=== PATIENT | female | born 1970 | race Caucasian/White ===

== ENCOUNTER 2016-06-11 08:20 | Emergency (ER) | payer MEDICAID ==
[~2016-06-11] VITALS: Ht 165.1 cm; Wt 68.2 kg
[~2016-06-11 08:20] MED LIST: ACET500C5 PO; IBUP400T22 PO; NPH10OT RIGHT EAR
[2016-06-11 08:45] VITALS: Ht 165.1 cm; Wt 68.2 kg
[2016-06-11 09:16] LABS: URINE BLOOD (Dip) POC 2+ (NEGATIVE)
[2016-06-11] MEDS ORDERED: CEFTRIAXONE 1 GM INJ IM ONE (09:30)
[2016-06-11] MEDS ORDERED: CIPR500T4 PO (09:50)
[2016-06-11] MEDS ORDERED: PHEN-538 PO (09:50)
[2016-06-11] MEDS ORDERED: LIDOCAINE 1% (MDV) 20 ML INJ IM ONE (10:00)
--- NOTE | 2016-06-11 10:32 | ERD ---
ER Documentation Chief Complaint Date/Time DATE: 06/11/16 TIME: 10:26 Chief Complaint CAME IN VIA INTAKE DUE TO BURNING WITH URINATION HPI 45-year-old female complaining of burning upon urination and urinary frequency 4 days. Patient reports suprapubic pain and flank pain, as well as subjective fever. She did not take any medications for pain or fever. Patient reports history of diabetes, taking medications for diabetes. She checks blood sugar daily, her fasting blood sugar this morning was 107. Denies nausea or vomiting. ROS All systems reviewed and are negative except as per history of present illness. Medications Home Meds Active Scripts Phenazopyridine Hcl* (Pyridium*) 200 Mg Tab, 200 MG PO TID Y for URINARY PAIN, # 6 TAB Prov:TYLER HICKS NP 06/11/16 Ciprofloxacin Hcl* (Ciprofloxacin Hcl*) 500 Mg Tablet, 500 MG PO BID for 10 Days , TAB Prov:TYLER HICKS NP 06/11/16 Acetaminophen* (Tylophen*) 500 Mg Capsule, 1 CAP PO Q6H Y for PAIN AND OR ELEVATED TEMP, #30 CAP Prov:CLARKE BETH PA-C 03/03/15 Ibuprofen* (Motrin*) 400 Mg Tab, 400 MG PO Q6H Y for PAIN AND OR ELEVATED TEMP, #30 TAB Prov:CLARKE BETH PA-C 03/03/15 Neomycin/Polymyxin/Hydrocort* (Cortisporin* Otic) 10 Ml Susp, 4 DROP RIGHT EAR QID for 10 Days, EA Prov:CLARKE BETH PA-C 03/03/15 Allergies Allergies: Coded Allergies: No Known Allergy (Unverified , 03/03/15) PMhx/Soc Medical and Surgical Hx: pt denies Medical Hx, pt denies Surgical Hx History of Surgery: No Anesthesia Reaction: No Hx Neurological Disorder: No Hx Respiratory Disorders: No Hx Cardiac Disorders: No Hx Psychiatric Problems: No Hx Miscellaneous Medical Probl: Yes (dm) Hx Alcohol Use: No Hx Substance Use: No Hx Tobacco Use: No Physical Exam Vitals Vital Signs Date Time Temp Pulse Resp B/P Pulse Ox O2 Delivery O2 Flow Rate FiO2 06/11/16 08:45 98.5 70 18 132/68 98 Physical Exam General impression: Well-developed, well-nourished. Alert, oriented, in no acute distress Head: Normocephalic, atraumatic. Respiration: Normal respiratory effort. Lungs clear to auscultate bilaterally. No wheezes, rales or rhonchi. Cardiovascular: Regular rate and rhythm. No murmurs or extra heart sounds. Abdomen: Abdomen normal to inspection. Suprapubic tenderness, no other tenderness. No masses or organomegaly. Bowel sounds normal. Back: Normal to inspection. No midline spine tenderness. Left CVA tenderness. Neuro: Mental status normal, speech normal. SLASHER HAND grossly intact. Skin: Normal turgor. No rash or lesions. Psych: Normal mood and affect. Results 24 hrs Laboratory Tests Test 06/11/16 09:15 Bedside Urine pH (LAB) 6.0 Bedside Urine Protein (LAB) 2+ Bedside Urine Glucose (UA) 0.25% Bedside Urine Ketones (LAB) Negative Bedside Urine Blood 2+ Bedside Urine Nitrite (LAB) Negative Bedside Urine Leukocyte Esterase (L 1+ Current Medications Medications (Trade) Dose Ordered Sig/Deepali Route PRN Reason Start Time Stop Time Status Last Admin Dose Admin Ceftriaxone Sodium (Rocephin) 1 gm ONCE ONCE IM 06/11/16 09:30 06/11/16 09:31 DC 06/11/16 09:42 Lidocaine (Xylocaine 1% (Mdv) 20 ml) 1 ml ONCE ONCE IM 06/11/16 10:00 06/11/16 10:01 DC 06/11/16 09:43 Procedures/MDM Well-appearing 45-year-old female with history of diabetes presented ED with urinary frequency and dysuria 4 days. Her urine dip showed 1+ leukocyte, negative nitrite, 2+ blood, 0.25% glucose, and 2+ protein. Patient has urinary tract infection. Patient also has left CVA tenderness as subjective fever, I suspect pyelonephritis. Rocephin 1 g IM given to the patient in the ED. Patient also given prescription of Cipro. Her urine is sent out for culture. Patient advised to follow-up with her PCP. Patient appears well, stable for discharge and outpatient management. Medical decision making shared with patient and family. Education provided to patient and family. Patient and family expressed understanding of the plan. Medications on discharge: Cipro, Pyridium. Follow-up: Primary care provider in 2-3 days or return to ED if worse. Departure Diagnosis: Primary Impression: Pyelonephritis Condition: Good Patient Instructions: Pyelonephritis, Female (Adult) [facility] Usted se britton hecho un examen mdico de control que le indica que no est en doyle condicin que requiera tratamiento urgente en el Departamento de Emergencia. Un estudio ms profundo y el tratamiento de kay condicin pueden esperar sin ningn riesgo hasta que usted sea atendida/o en el consultorio de kay mdico o doyle cl ceci. Es responsabilidad suya arreglar doyle shannon para el seguimiento del jian. MANEJO DE CONDICIONES NO URGENTES EN EL FUTURO 1) Si usted tiene un mdico de atencin primaria: Usted debera llamar a kay mdico de atencin primaria antes de venir al departamento de emergencia. Despus de las horas de consultorio, kay doctor o kay asociado/a est disponible por telfono. El mdico o enfermero de jose en el servicio telefnico puede asesorarle por alejandro medio para atender el problema, o jian contrario se puede programar doyle shannon. 2) Si usted no tiene un mdico de atencin primaria: Llame al mdico o clnica de referencia que aparece abajo alberto las horas de consultorio para hacer doyle shannon para que le vean. CLINICAS: [facility] [phone] [facility] [phone] [facility] [phone] [facility] [facility] [facility] [phone] [facility] [phone] [facility]. [phone] [place] Additional Instructions: Llame al doctor MAANA y renate doyle SHANNON PARA DENTRO DE 2-3 JORDAN.Dgale a la secretaria que nosotros le instruimos hacer esta shannon.Avise o llame si kay condicin se empeora antes de la shannon. Regresa aqui si peor o no mejor. TYLER HICKS NP Jun 11, 2016 10:32
== END 2016-06-11 10:04 | disposition home or self-care (01) ==
LOC: FTE 08:20
DX: N12 Tubulo-interstitial nephritis, not specified as acute or chronic (principal); E11.9 Type 2 diabetes mellitus without complications
CPT/HCPCS: 81003; 87086; J0696; Z7610; 96372

== ENCOUNTER 2016-08-11 18:54 | Emergency (ER) | payer MEDICAID ==
[~2016-08-11] VITALS: Wt 63.0 kg
[~2016-08-11 18:54] MED LIST changes: +CIPR500T4 PO; +PHEN-538 PO
[2016-08-11 19:52] LABS: URINE BLOOD (Dip) POC 2+ (NEGATIVE)
--- NOTE | 2016-08-11 20:04 | ERD ---
ER Documentation Chief Complaint Date/Time DATE: 08/11/16 TIME: 20:02 Chief Complaint FEVER AND RIGHT EAR PAIN AND BODY ACHES FOR THE PAST FEW DAYS. HPI This pleasant 46-year-old [place]-speaking female presents to emergency department today reporting nausea, vomiting, diarrhea, fever, headache, and right ear pain. 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 Patient reports that she has had watery diarrhea 11 times since yesterday, vomits 2 times today has been unable to have solid foods, clear liquid diet only. Patient reports she is a diabetic, with high blood pressure and hyperlipidemia. Patient has taken her metformin today but reports vomiting is shortly after taking it. Patient reports mild dizziness , weakness, and fatigue. Denies chest pain, shortness of breath, palpitations. ROS All systems reviewed and are negative except as per history of present illness. Medications Home Meds Active Scripts Phenazopyridine Hcl* (Pyridium*) 200 Mg Tab, 200 MG PO TID Y for URINARY PAIN, # 6 TAB Prov:TYLER HICKS NP 06/11/16 Ciprofloxacin Hcl* (Ciprofloxacin Hcl*) 500 Mg Tablet, 500 MG PO BID for 10 Days , TAB Prov:TYLER HICKS NP 06/11/16 Acetaminophen* (Tylophen*) 500 Mg Capsule, 1 CAP PO Q6H Y for PAIN AND OR ELEVATED TEMP, #30 CAP Prov:CLARKE BETH PA-C 03/03/15 Ibuprofen* (Motrin*) 400 Mg Tab, 400 MG PO Q6H Y for PAIN AND OR ELEVATED TEMP, #30 TAB Prov:CLARKE BETH PA-C 03/03/15 Neomycin/Polymyxin/Hydrocort* (Cortisporin* Otic) 10 Ml Susp, 4 DROP RIGHT EAR QID for 10 Days, EA Prov:CLARKE BETH PA-C 03/03/15 Allergies Allergies: Coded Allergies: No Known Allergy (Unverified , 03/03/15) PMhx/Soc History of Surgery: No Anesthesia Reaction: No Hx Neurological Disorder: No Hx Respiratory Disorders: No Hx Cardiac Disorders: No Hx Psychiatric Problems: No Hx Miscellaneous Medical Probl: Yes (dm, NEUROPATHY, HYPERLIPIDEMIA) Hx Alcohol Use: No Hx Substance Use: No Hx Tobacco Use: No Smoking Status: Never smoker Physical Exam Vitals Vital Signs Date Time Temp Pulse Resp B/P Pulse Ox O2 Delivery O2 Flow Rate FiO2 08/11/16 18:58 100.5 121 20 136/80 99 Physical Exam Const: Well-appearing, no acute distress Head: Atraumatic Eyes: Normal Conjunctiva, PERRLA, EOMI ENT: Tympanic membranes translucent, bony landmarks visualized, nasal mucosa moist, septum midline, pharynx pink, tongue midline, oral mucosa moist, uvula rises and falls with pronation. Neck: Resp: Chest rises and falls symmetrically, clear to auscultation bilaterally no respiratory distress Cardio: Regular rate and rhythm, no murmurs S1-S2, no S3-S4 Abd: Abdomen soft, generalized tenderness, no CVA tenderness Skin: Back: No midline or flank tenderness Ext: Neur: Awake and alert Psych: Normal Mood and Affect Results 24 hrs Laboratory Tests Test 08/11/16 19:55 Urine Color LT. YELLOW Urine Clarity CLEAR Urine pH 6.0 Bedside Urine pH (LAB) 5.5 Urine Specific [place] 1.015 Bedside Urine Protein (LAB) 1+ Bedside Urine Glucose (UA) Negative Urine Ketones 15 Bedside Urine Ketones (LAB) 1+ Bedside Urine Blood 2+ Urine Nitrite NEGATIVE Bedside Urine Nitrite (LAB) Negative Urine Bilirubin NEGATIVE Urine Urobilinogen 0.2 E.U./dL Urine Leukocyte Esterase 3+ Bedside Urine Leukocyte Esterase (L 3+ Urine Microscopic RBC 2-5/HPF Urine Microscopic WBC 5-10/HPF Urine Squamous Epithelial Cells MODERATE Urine Bacteria MANY Urine Hemoglobin 2+ Urine Glucose NEGATIVE% Urine Total Protein NEGATIVE Current Medications Medications (Trade) Dose Ordered Sig/Deepali Route PRN Reason Start Time Stop Time Status Last Admin Dose Admin Sodium Chloride (NS) 1,000 ml @ 1,000 mls/hr Q1H ONCE IV 08/11/16 20:30 08/11/16 21:29 08/11/16 20:22 Ketorolac Tromethamine (Toradol) 15 mg ONCE STAT IV 08/11/16 20:08 08/11/16 20:11 DC 08/11/16 20:21 Ondansetron HCl (Zofran Inj) 4 mg ONCE STAT IV 08/11/16 20:08 08/11/16 20:11 DC 08/11/16 20:21 Urinalysis positive for evidence of leukocytosis, microscopic hematuria, bacteria suggestive of infection. Procedures/MDM This pleasant 46-year-old female presents to emergency department today with fevers, nausea vomiting and diarrhea. Patient is a diabetic and has not been able to tolerate solid foods, reports clear liquid diet. Patient reports headache and right ear pain. Patient denies any recent travel outside of the [place]. Denies possibility of contaminated food. Or known sick contacts. Bowel obstruction, cholecystitis, pancreatitis unlikely. Patient treated with Zofran , 1 L of normal saline, and Toradol for headache tolerated interventions well, reports improvement after treatment. Urine obtained for analysis and to rule out , no evidence of , urinalysis positive for leukocytosis, microscopic hematuria, and bacteria. Findings are suggestive of a urine tract infection. Patient is able to tolerate liquids prior to discharge from emergency department. She will be discharged Macrobid, Zofran for nausea, and strict return to emergency room precautions, return to emergency room in 8 hours if symptoms fail to improve with current treatment. Return for continued nausea and vomiting, for increased fever, or abdominal pain. I feel the patient is stable for discharge at this time with return to emergency room precautions. I have discussed results, examination findings, the treatment plan with the patient and family present prior to discharge. Indications for emergent reevaluation, side effects of medication were also discussed. All questions were answered. Patient verbalizes understanding and agrees with plan of care. Departure Diagnosis: Primary Impression: UTI (urinary tract infection) Urinary tract infection type: site unspecified Hematuria presence: with hematuria Qualified Code: N39.0 - Urinary tract infection with hematuria, site unspecified Additional Impression: N&V (nausea and vomiting) Vomiting type: unspecified Vomiting Intractability: non-intractable Qualified Code: R11.2 - Non-intractable vomiting with nausea, unspecified vomiting type Condition: Good Patient Instructions: Nausea and Vomiting-Adult, Understanding Urinary Tract Infections (UTIs) Additional Instructions: Thank you for for coming to [facility] for your care today. Please ask your nurse or provider if you have questions about your care today and do not leave until all your questions have been answered. Please use any medications given as directed and follow-up with your doctor (or the doctor you were referred to) in the next 2-3 days. If you do not have a primary care doctor you may follow up at the [facility] (listed below). You may also use motrin and tylenol as needed for fever and/or pain unless instructed otherwise by your provider or nurse. Indications for more urgent follow-up have been discussed, but you may return to the Emergency Department at ANY time for any worrisome or worsening symptoms. If you have abdominal pain, please know that no test or exam you received is perfect and you should follow up within 8 hours for continued pain. If you had any imaging studies today, such as an X-Ray or CT Scan, these studies will be reviewed later by a radiologist. You will be called if there are important findings that were not identified today, so make sure the contact information you provided at registration is correct. If you received any narcotic pain control medicine today, such as Vicodin, Morphine or Dilaudid, your coordination and judgment may be affected for a number of hours. Please do not drive or operate heavy machinery, and you may want someone to assist you at home. If you were given a prescription for narcotic medication, be aware that it is very addictive- use sparingly and only if necessary. LEISA PALMA August 11, 2016 20:04
[2016-08-11] MEDS ORDERED: KETOROLAC 15 MG INJ IV STA (20:08)
[2016-08-11] MEDS ORDERED: ONDANSETRON 4 MG INJ IV STA (20:08)
[2016-08-11] MEDS ORDERED: SOD CHLORIDE 0.9% 1,000 ML IV ONE (20:30)
[2016-08-11 20:46] LABS: ADD UMIC YES; URINE BILIRUBIN (Dip) NEGATIVE (NEGATIVE); URINE BLOOD (Dip) 2+ (NEGATIVE); URINE COLOR LT. YELLOW (YELLOW); URINE GLUCOSE (Dip) NEGATIVE (NEGATIVE); URINE KETONES (Dip) 15 (NEGATIVE); URINE LEUKOCYTE ESTERASE (Dip) 3+ (NEGATIVE); URINE NITRITE (Dip) NEGATIVE (NEGATIVE); URINE TOTAL PROTEIN (Dip) NEGATIVE (NEGATIVE); URINE UROBILINOGEN (Dip) 0.2 E.U./dL (0.1-1.0)
[2016-08-11 21:00] LABS: BACTERIA,URINE MANY; SQUAMOUS EPITHELIAL CELL,UR MODERATE
[2016-08-11] MEDS ORDERED: NITR-58 PO (21:31)
[2016-08-11] MEDS ORDERED: ONDA4TAB14 PO (21:31)
[2016-08-11 21:50] VITALS: BP 123/71; PULSE 81; RESP 20; TEMP 97.7
== END 2016-08-11 21:50 | disposition home or self-care (01) ==
LOC: FTE 18:54
DX: N39.0 Urinary tract infection, site not specified (principal); R11.2 Nausea with vomiting, unspecified; E11.9 Type 2 diabetes mellitus without complications; I10 Essential (primary) hypertension; Z79.84 Long term (current) use of oral hypoglycemic drugs
CPT/HCPCS: 81001; J1885; J2405; J7030; 81003; 96374; 96375